=== PATIENT | male | born 1985 | race Caucasian/White ===

== ENCOUNTER 2017-06-07 13:48 | Emergency (ER) | payer OTHER ==
[2017-06-07 15:21] VITALS: BP 124/85
== END 2017-06-07 15:25 | disposition left against medical advice (07) ==
LOC: UCEAST 13:48
DX: R05 Cough (principal); J02.9 Acute pharyngitis, unspecified; Z53.21 Procedure and treatment not carried out due to patient leaving prior to being seen by health care provider

== ENCOUNTER 2017-06-11 10:29 | Emergency (ER) | payer OTHER ==
[2017-06-11 10:42] VITALS: BP 117/75
--- NOTE | 2017-06-11 11:50 | UC ---
Throat Pain/Nasal M[place]h HPI - HPI Summary HPI Summary: Pt presents with sinus pain/pressure/congestion, sore throat, and dry cough for 1 week. He has been taking mucinex with mild relief, but his symptoms seem to be getting worse. He denies fever, chills, SOB, chest pain, abdominal pain, n/v/ d/c. He is still smoking - History of Current Complaint Chief Complaint: UCRespiratory Stated Complaint: CONGESTED, EAR ACHE Time Seen by Provider: 06/11/17 11:50 Hx Obtained From: Patient Pain Intensity: 0 Cough: Nonproductive - Allergies/Home Medications Allergies/Adverse Reactions: Allergies Allergy/AdvReac Type Severity Reaction Status Date / Time Sulfamethoxazole Allergy Unknown Verified 06/11/17 10:42 w/Trimethoprim Reaction [From Bactrim] Details Home Medications: Home Medications Dextromethorphan Polistirex [Robitussin 12 Hour Cough] 06/11/17 [History] guaiFENesin ER TAB [Mucinex*] 2 tab PO DAILY PRN 06/11/17 [History Confirmed ] PMH/Surg Hx/FS Hx/Imm Hx Previously Healthy: Yes - Surgical History Surgical History: Yes Surgery Procedure, Year, and Place: tonsillectomy - Family History Known Family History: Positive: Unknown - Social History Occupation: Unemployed Lives: Alone Alcohol Use: Rare Substance Use Type: None Smoking Status (MU): Heavy Every Day Tobacco Smoker Type: Cigarettes Amount Used/How Often: 1/2 ppd Household Exposure Type: Cigarettes Cessation Counseling: Counseled 3+Min - 10 Min Review of Systems Constitutional: Negative Skin: Negative Eyes: Negative ENT: Sore Throat, Nasal Discharge, Sinus Congestion, Sinus Pain/Tenderness Respiratory: Cough Cardiovascular: Negative Gastrointestinal: Negative Neurological: Negative Psychological: Negative All Other Systems Reviewed And Are Negative: Yes Physical Exam Triage Information Reviewed: Yes Appearance: Well-Appearing, No Pain Distress, Well-Nourished Vital Signs: Initial Vital Signs Temp 98.6 F 06/11/17 10:37 Pulse 91 06/11/17 10:37 Resp 14 06/11/17 10:37 BP 117/75 06/11/17 10:37 Pulse Ox 100 06/11/17 10:37 Vital Signs Reviewed: Yes Eyes: Positive: Conjunctiva Clear. Negative: Conjunctiva Inflamed, Discharge ENT: Positive: Hearing grossly normal, Pharynx normal, Nasal congestion, Nasal drainage, TMs normal, Sinus tenderness, Uvula midline. Negative: Pharyngeal erythema, TM bulging, TM dull, TM red, Tonsillar swelling, Tonsillar exudate, Hoarse voice Neck: Positive: Supple, Nontender, No Lymphadenopathy Respiratory: Positive: Chest non-tender, Lungs clear, Normal breath sounds, No respiratory distress, No accessory muscle use Cardiovascular: Positive: RRR, No Murmur, Pulses Normal Neurological: Positive: Alert Psychological: Positive: Age Appropriate Behavior Skin: Negative: rashes Throat Pain/Nasal Course/Dx - Course Course Of Treatment: Sinusitis - Amoxicillin - Differential Dx/Diagnosis Provider Diagnoses: Sinusitis. Cough Discharge - Discharge Plan Condition: Stable Disposition: HOME Prescriptions: Amoxicillin PO (*) [Amoxicillin 500 MG CAP*] 500 mg PO Q12H #14 cap Patient Education Materials: Sinusitis (ED) Forms: *Work Release Referrals: No Primary Care Phys,NOPCP [Primary Care Provider] - Additional Instructions: If you develop a fever, shortness of breath, chest pain, new or worsening symptoms - please call your PCP or go to the ED.
== END 2017-06-11 12:00 | disposition home or self-care (01) ==
LOC: UCEAST 10:29
DX: J32.9 Chronic sinusitis, unspecified (principal); R05 Cough; Z88.3 Allergy status to other anti-infective agents; F17.210 Nicotine dependence, cigarettes, uncomplicated
CPT/HCPCS: 99212; G0463

== ENCOUNTER 2017-09-19 11:56 | Emergency (ER) | payer SELFPAY ==
[2017-09-19 12:08] VITALS: BP 133/81
== END 2017-09-19 13:47 | disposition left against medical advice (07) ==
LOC: ED 11:56
DX: K08.89 Other specified disorders of teeth and supporting structures (principal); Z53.21 Procedure and treatment not carried out due to patient leaving prior to being seen by health care provider

== ENCOUNTER 2017-10-02 19:37 | Emergency (ER) | payer MEDICAID ==
[2017-10-02 19:52] VITALS: BP 130/94
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
[2017-10-02] MEDS ORDERED: HYDROcodone/ACETAMIN 5-325 MG* 1 TAB PO ONE (20:20)
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
== END 2017-10-02 21:25 | disposition home or self-care (01) ==
LOC: UCEAST 19:37
DX: S29.012A Strain of muscle and tendon of back wall of thorax, initial encounter (principal); Y04.2XXA Assault by strike against or bumped into by another person, initial encounter; Y93.9 Activity, unspecified; Y92.9 Unspecified place or not applicable; R07.81 Pleurodynia; M25.511 Pain in right shoulder; M54.2 Cervicalgia; Z88.2 Allergy status to sulfonamides; F17.210 Nicotine dependence, cigarettes, uncomplicated
CPT/HCPCS: 72050; 99212; G0463

== ENCOUNTER 2018-09-22 20:15 | Emergency (ER) | payer OTHER ==
[2018-09-22] MEDS ORDERED: Ketorolac INJ* 30 MG/ML 1 ML VIAL IM ONE (21:37)
[2018-09-22] MEDS ORDERED: Clindamycin CAP* 150 MG PO ONE (21:37)
[2018-09-22] MEDS ORDERED: HYDROcodone/ACETAMIN 5-325 MG* 1 TAB PO ONE (21:40)
--- NOTE | 2018-09-22 21:40 | ED ---
Throat Pain/Nasal Congestion - HPI Summary HPI Summary: 33-year-old male presents with dental pain for the past couple days. He states he says increased swelling to his lower jaw. He has been taking ibuprofen for the pain but it is not working. He states he's been taking more than he should of ibuprofen. He denies any fevers or chills. No chest or shortness breath. No difficulty swallowing. He states he has a history of dental infection. Does not currently have a dentist. He is states he is here for pain medication and antibiotics. - History of Current Complaint Chief Complaint: EDDentalPain Time Seen by Provider: 09/22/18 21:28 - Allergies/Home Medications Allergies/Adverse Reactions: Allergies Allergy/AdvReac Type Severity Reaction Status Date / Time sulfamethoxazole Allergy Unknown Verified 10/02/17 19:52 [From Bactrim] Reaction Details trimethoprim [From Bactrim] Allergy Unknown Verified 10/02/17 19:52 Reaction Details PMH/Surg Hx/FS Hx/Imm Hx Endocrine/Hematology History: Denies: Hx Diabetes, Hx Thyroid Disease Cardiovascular History: Denies: Hx Hypertension Respiratory History: Denies: Hx Asthma, Hx Chronic Obstructive Pulmonary Disease (COPD) GI History: Denies: Hx Ulcer - Surgical History Surgery Procedure, Year, and Place: tonsillectomy Infectious Disease History: No Infectious Disease History: Denies: Hx Clostridium Difficile, Hx Hepatitis, Hx Human Immunodeficiency Virus (HIV), Hx of Known/Suspected MRSA, Hx Shingles, Hx Tuberculosis, Traveled Outside the [place] in Last 30 Days - Family History Known Family History: Positive: Unknown - Social History Alcohol Use: Rare Substance Use Type: Reports: None Smoking Status (MU): Heavy Every Day Tobacco Smoker Type: Cigarettes Amount Used/How Often: 1/2 ppd Review of Systems Negative: Fever Positive: Dental Pain Negative: Chest Pain Negative: Shortness Of Breath All Other Systems Reviewed And Are Negative: Yes Physical Exam Triage Information Reviewed: Yes Vital Signs On Initial Exam: Initial Vitals Temp Pulse Resp BP Pulse Ox 98.8 F 88 18 138/80 99 09/22/18 20:22 09/22/18 20:22 09/22/18 20:22 09/22/18 20:22 09/22/18 20:22 Vital Signs Reviewed: Yes Appearance: Positive: Well-Appearing Skin: Positive: Warm, Dry Head/Face: Positive: Normal Head/Face Inspection Eyes: Positive: Normal, EOMI, [place], Conjunctiva Clear ENT: Positive: Normal ENT inspection, Pharynx normal, TMs normal Dental: Positive: Gross Decay/Caries @ - throughout, Other - swelling to left lower jaw, induration but no fluatance noted to lower jaw Neck: Positive: Supple, Nontender, No Lymphadenopathy Respiratory/Lung Sounds: Positive: Clear to Auscultation, Breath Sounds Present Cardiovascular: Positive: Normal, RRR Musculoskeletal: Positive: Normal Neurological: Positive: Normal Psychiatric: Positive: Normal Diagnostics - Vital Signs Vital Signs Temp Pulse Resp BP Pulse Ox 09/22/18 20:22 98.8 F 88 18 138/80 99 - Laboratory Lab Statement: Any lab studies that have been ordered have been reviewed, and results considered in the medical decision making process. EENT Course/Dx - Course Course Of Treatment: 33-year-old male presents with dental pain for the past couple days. He states he says increased swelling to his lower jaw. He has been taking ibuprofen for the pain but it is not working. He states he's been taking more than he should of ibuprofen. He denies any fevers or chills. No chest or shortness breath. No difficulty swallowing. He states he has a history of dental infection. Does not currently have a dentist. He is states he is here for pain medication and antibiotics. On exam has swelling noted to the lower jaw. Area of induration felt lower jaw but no fluctuance noted. lungs clear to auscultation. Offered to potentially I&D of the area and patient declined. Patient also declined IV antibiotics. We'll discharge with clindamycin and a short course of pain medication. Told to follow with dentist. Patient understands agrees with plan. - Differential Diagnoses Differential Diagnoses: Dental Abscess, Dental Caries, Fractured Tooth - Diagnoses Provider Diagnoses: Dental abscess Discharge - Sign-Out/Discharge Documenting (check all that apply): Patient Departure Patient Received Moderate/Deep Sedation with Procedure: No - Discharge Plan Condition: Good Disposition: HOME Prescriptions: Clindamycin Cap(NF) [Clindamycin Cap 300 mg Cap(NF)] 300 mg PO TID #29 cap HYDROcodone/ACETAMIN 5-325 MG* [[place] 5-325 TAB*] 1 tab PO Q6H PRN #10 tab MDD 4 PRN Reason: Pain Patient Education Materials: Dental Abscess (ED) Referrals: No Primary Care Phys,NOPCP [Primary Care Provider] - Additional Instructions: Take clindamycin three times a day for 7 days Take ibuprofen or tyenlol every 6 hours for pain as needed, use norco every 6 hours as needed for breakthrough pain Avoid hard, crunchy food until seen by dentist Return to ED if develop fever or any new or worsening symptoms Establish care with primary care physician and dentist as soon as possible - Billing Disposition and Condition Condition: GOOD Disposition: Home
[2018-09-22 22:05] VITALS: BP 139/84
== END 2018-09-22 22:04 | disposition home or self-care (01) ==
LOC: ED 20:15
DX: K04.7 Periapical abscess without sinus (principal); K08.89 Other specified disorders of teeth and supporting structures; F17.210 Nicotine dependence, cigarettes, uncomplicated
CPT/HCPCS: 96372; 99282; A9270-GY; J1885